=== PATIENT | male | born 1960 | race Caucasian/White ===

== ENCOUNTER 2017-02-15 06:44 | Day surgery (SDC) | payer BC ==
[~2017-02-15] VITALS: Ht 172.7 cm; Wt 74.8 kg
[~2017-02-15 06:44] MED LIST: MULT-516 PO
[2017-02-15] MEDS ORDERED: BACITRACIN 50,000 UNIT ONE (06:50)
[2017-02-15] MEDS ORDERED: BUPIVACAINE/PF 0.5% ONE (06:50)
[2017-02-15] MEDS ORDERED: LACTATED RINGERS 1,000 ML IV SCH (06:54)
[2017-02-15] MEDS ORDERED: PROPOFOL 10 MG/ML, 20ML ONE (07:04)
[2017-02-15] MEDS ORDERED: GLYCOPYRROLATE 0.2MG/1ML, 5ML ONE (07:04)
[2017-02-15] MEDS ORDERED: MIDAZOLAM 1 MG/ML, 2ML ONE (07:04)
[2017-02-15] MEDS ORDERED: DEXAMETHASONE 4 MG/ML, 1ML ONE (07:04)
[2017-02-15] MEDS ORDERED: ROCURONIUM 10 MG/ML ONE (07:04)
[2017-02-15] MEDS ORDERED: FENTANYL PF 100 MCG/2ML ONE ×3 (07:04)
[2017-02-15] MEDS ORDERED: METOCLOPRAMIDE 5 MG/ML, 2ML IV PRN (08:00)
[2017-02-15] MEDS ORDERED: MIDAZOLAM 1 MG/ML, 2ML IV PRN (08:00)
[2017-02-15] MEDS ORDERED: MEPERIDINE/PF 25MG/0.5ML IVPush PRN (08:00)
[2017-02-15] MEDS ORDERED: FENTANYL PF 100 MCG/2ML IV PRN (08:00)
[2017-02-15] MEDS ORDERED: LABETALOL 5MG/ML, 20ML IV PRN (08:00)
[2017-02-15] MEDS ORDERED: ONDANSETRON 2MG/ML, 2ML IVPush PRN (08:00)
[2017-02-15] MEDS ORDERED: KETOROLAC 30 MG/1 ML IV PRN (08:00)
[2017-02-15] MEDS ORDERED: ALBUTEROL SULFATE 2.5 MG/3 ML NPPB PRN (08:00)
[2017-02-15] MEDS ORDERED: HYDROmorphone 1 MG/ML, 1ML IV PRN (08:00)
[2017-02-15] MEDS ORDERED: OXYcodone 5 MG/5 ML ORAL.SOL UDC PO PRN (08:00)
[2017-02-15] MEDS ORDERED: HYDROcodone/APAP 7.5-325MG/15ML UDC PO PRN (08:00)
[2017-02-15] MEDS ORDERED: CEFAZOLIN 1,000 MG ONE (09:40)
[2017-02-15] MEDS ORDERED: MAGNESIUM SULFATE PMX ONE (09:40)
[2017-02-15] MEDS ORDERED: LIDOCAINE-MPF 2% ,5ML ONE (09:40)
[2017-02-15] MEDS ORDERED: MAGNESIUM SULFATE 1 GM/2 ML ONE (09:40)
[2017-02-15] MEDS ORDERED: OXYcodone 5 MG/5 ML ORAL.SOL UDC ONE (10:42)
== END 2017-02-15 13:20 ==
LOC: OUT 06:44
PROVIDERS: ATTEND Surgery
DX: K40.91 Unilateral inguinal hernia, without obstruction or gangrene, recurrent (principal); M79.89 Other specified soft tissue disorders
CPT/HCPCS: 49520; 88305; 88331; 88341; 88342; J0690; J1100; J2250; J2704; J3010; J3475; J3490; J7120; G0461